=== PATIENT | male | born 1950 | race Caucasian/White ===

== ENCOUNTER 2017-06-08 14:33 | Inpatient (IN) | payer MEDICARE, OTHER ==
[~2017-06-08] VITALS: Ht 182.9 cm; Wt 106.8 kg
[2017-06-28] MEDS ORDERED: VALS1TAB65 PO (09:41)
[2017-06-28] MEDS ORDERED: RANI150T PO (09:41)
[2017-06-28] MEDS ORDERED: ATOR10TA15 PO (09:41)
[2017-06-28] MEDS ORDERED: CELE1CAP8 PO (09:41)
[2017-06-28] MEDS ORDERED: OMEP40CA2 PO (09:41)
[2017-06-28] MEDS ORDERED: ESCI10TA PO (09:41)
[2017-07-09] MEDS ORDERED: POVIDONE IODINE 5% (ANTISEPSIS KIT) 4 APPLICATIONS EACH NARE PRN (06:00)
[2017-07-09] MEDS ORDERED: METOPROLOL TARTRATE 25 MG TAB PO PRN (06:00)
[2017-07-09] MEDS ORDERED: INSULIN HUMAN REGULAR 1,000 UNITS/10 ML VIAL SQ PRN (06:00)
[2017-07-09] MEDS ORDERED: CHLORHEXIDINE GLUCONATE 2 % 1 PACK (2 CLOTHS) TOPICAL PRN (06:00)
[2017-07-09] MEDS ORDERED: SODIUM CHLORID 0.9% 500 ML IV PRN (06:00)
[2017-07-09] MEDS ORDERED: CHLORHEXIDINE GLUCONATE 4% SOLN 120 ML BTL TOPICAL SCH (06:00)
[2017-07-09] MEDS ORDERED: LACTATED RINGER'S 1000 ML IV PRN (06:00)
[2017-07-09] MEDS ORDERED: ceFAZolin 2 GM PREMIX 50 ML IV SCH (06:00)
[2017-07-09] MEDS ORDERED: GENTAMICIN SULFATE 80 MG/2 ML VIAL ONE (06:15)
[2017-07-09] MEDS ORDERED: DEXAMETHASONE SOD PHOS 4 MG/ML VIAL ONE (06:40)
[2017-07-09] MEDS ORDERED: MIDAZOLAM HCL 2 MG/2 ML VIAL ONE (06:40)
[2017-07-09] MEDS ORDERED: FAMOTIDINE 20 MG/2 ML VIAL ONE (06:40)
[2017-07-09] MEDS ORDERED: ACETAMINOPHEN 1000 MG/100 ML VIAL IV ONE (06:40)
[2017-07-09] MEDS ORDERED: BISACODYL 10 MG SUPP RECTAL PRN (06:45)
[2017-07-09] MEDS ORDERED: SODIUM CHLORIDE 0.9% FLUSH 5 ML FLUSH IVF PRN (06:45)
[2017-07-09] MEDS ORDERED: TRANEXAMIC ACID INJ 0 MG in SODIUM CHLORIDE 0.9% INJ 100 ML IV SCH (06:45)
[2017-07-09] MEDS ORDERED: ONDANSETRON HCL 4 MG/2 ML VIAL IVP PRN (06:45)
[2017-07-09] MEDS ORDERED: ACETAMINOPHEN/HYDROcodone 325 MG/7.5 MG TAB PO PRN ×2 (06:45)
[2017-07-09] MEDS ORDERED: MORPHINE SULFATE 8 MG/ML INJ IV PUSH PRN (06:45)
[2017-07-09] MEDS ORDERED: MAGNESIUM HYDROXIDE SUSP 30 ML CUP PO PRN (06:45)
[2017-07-09] MEDS ORDERED: Post-op Orders (for Pharmacy) MISC XX ONE (06:45)
--- NOTE | 2017-07-09 06:51 | HHI.FF ---
Face to Face Verification Diagnosis: (1) Status post total hip replacement, right Physical Therapy Gait training Hip: Total hip, Protocol: Right, Posterior hip precautions, Progress to weight bearing Canvas Knee Splint: When in bed & 2 pillows btw thighs Right LE Weight Bearing: WB as tolerated Right LE Range of Motion: Active ROM Nursing Nursing: Dressing changes Dressing Changes: Daily dressing change, Coverderm/Primapore Additional Instructions Remove steristrips on postop day 14. I have seen patient Ismael Yip on 07/09/17. My clinical findings support the need for the requested home health care services because: Ltd mobility - disease progression Limited ability to care for self High risk of falls I certify that my clinical findings support that this patient is homebound because: Post-op weakness Unsteady gait/balance Unsafe to leave home unassisted Fany Bhakta MD (Charles) Jul 09, 2017 06:51
[2017-07-09] MEDS ORDERED: SODIUM CHLORIDE 0.9% IV SCH ×2 (07:00→10:00)
[2017-07-09] MEDS ORDERED: EXPAREL PERI-ARTICULAR INJECTION (TOTAL VOL. 60 ML) P-ARTICULR SCH ×2 (07:00)
[2017-07-09] MEDS ORDERED: TRANEXAMIC ACID IV SCH ×2 (07:00→10:00)
[2017-07-09] MEDS: SODIUM CHLORIDE 0.9% FLUSH 5 ML FLUSH IVF SCH ×2 (09:00→21:00)
[2017-07-09] MEDS ORDERED: DO NOT ADM ANY ANTICOAGULANT DRUGS PRN (09:56)
[2017-07-09] MEDS: LACTATED RINGER'S 1000 ML INJ 1,000 ML IV SCH ×2 (10:00→19:14)
[2017-07-09] MEDS ORDERED: *morphine SULFATE 8 MG/ML PERIprocedure ONLY ONE (10:35)
--- NOTE | 2017-07-09 11:02 | RADRPT ---
EXAM DATE/TIME: 07/09/2017 10:16 [place] COMPARISON: No previous studies available for comparison. INDICATIONS : Right total hip replacement. MEDICAL HISTORY : Hypertension. Gastroesophageal reflux disease. SURGICAL HISTORY : Right total hip replacement. ENCOUNTER: Initial ACUITY: 1 day PAIN SCORE: 3/10 LOCATION: Right hip FINDINGS: A two view examination of the right hip was performed. Right hip prosthesis. No hardware loosening or fracture. The acetabulum is grossly intact. CONCLUSION: Right hip prosthesis. Saravanan Baker MD on July 09, 2017 at 11:00 Board Certified Radiologist. This report was verified electronically.
--- NOTE | 2017-07-09 11:06 | MP ---
cc: Miguel Ángel RAMIREZ. DATE OF SURGERY: 07/09/2017 PREOPERATIVE DIAGNOSIS Primary osteoarthritis, right hip. POSTOPERATIVE DIAGNOSIS Primary osteoarthritis, right hip. OPERATION PERFORMED Right total hip arthroplasty using Roxie prosthesis. SURGEON Fany Ramirez MD ANESTHESIA Spinal with supplemental local using Exparel INDICATIONS AND FINDINGS This 66-year-old man has had right hip pain for the past 18 months. This is progressively worsened to the point where his ambulation tolerance is one mile. He has pain that radiates to the knee and pain when driving. He has difficulty standing from a seated position and using stairs. He has been treated with anti-inflammatory agents, analgesics, activity modification, exercise, physical therapy and ambulatory aids without recent benefit and with progressive worsening. Physical findings showed limitation of motion of the hip with tenderness on motion. X-rays showed significant arthritis down to exposed subchondral bone seen on the x-rays and MRI. There are some degenerative cysts and subchondral sclerosis. There are osteophytes. The operative findings were consistent with the radiographic findings with loss of articular cartilage to [id number]. The prosthesis used was a Willie prosthesis with the acetabular component being a size 54 tritanium cluster shell with a single screw and a 32 mm inner diameter X3 polyethylene Trident liner. The femoral component was a size 6 x 127 degree neck angle with a Biolox Delta ceramic head size 32 mm outer diameter x +0 neck length. PROCEDURE The patient was brought to the clean-air operating suite and a spinal anesthetic was administered. He received prophylactic antibiotics in the form of Ancef and also received tranexamic acid, both according to standard protocols. The patient was then positioned in a lateral position on a Biomet lateral positioner with the right hip up. The hip was then prepped with alcohol, Hibiclens and ChloraPrep and draped in the usual manner with the hip draped free. An appropriate timeout procedure was carried out. Local anesthesia was administered in the incision site prior to making the incision. The incision was approximately 15 cm in length going from the mid trochanteric area proximally and posteriorly. The incision was deepened through the subcutaneous tissues to the upper portion of the greater trochanter and the fascia isaac and gluteus fascia. The gluteus fascia was incised and then the gluteus esha was spread down to the posterior fat layer. A Charnley retractor was inserted. A retractor was then placed above the piriformis and the obturator muscle tendons. These were then transected and released off the posterior superior aspect of the greater trochanter. The capsulotomy was then carried out going longitudinally along the femoral neck up proximally. This was carried down more distally as well, as well as dissecting anteriorly and posteriorly. The hip was dislocated. The femoral neck was transected with the oscillating saw. The femur was then prepared using a box osteotome to initiate reaming followed by a canal finding awl and curet, and subsequently broaching starting at size 0 and going up to size 7. At size 7 no calcar planing was necessary. The hip was then repositioned. Attention was to directed to the acetabulum. The soft tissues were debrided from the acetabulum with electrocautery. Reaming was started at 45 mm and went in 1 mm increments to 51 mm. A trial reduction was carried out with a 52 mm but this was loose. Additional reaming was carried up to 53 mm. A trial prosthesis was inserted and appeared to be appropriate. The actual prosthesis was then placed onto the insertion device and impacted into place according to the anatomical landmarks. The position appeared to be excellent. The shell was then stabilized with a single dome screw, predrilled and sounded. When this was seated the 0 degree acetabular liner with a 32 mm inner diameter was impacted into place and seated appropriately. Trial reduction was carried out with a -4 mm neck length trial but this was tight. For this reason the femoral trial broach was removed and broaching carried out to 6 instead. Additional calcar planing was required to bring this to appropriate length. At this point the trial reduction was carried out with the neutral neck length and this was appropriate. The broach was removed. The medullary canal was cleaned with pulse lavage. Prior to placement of the femoral component the acetabulum and femur were injected with Exparel. The prosthesis was then seated into appropriate position. A trial reduction was carried out again with a neutral neck and was found to be excellent. The Biolox Delta head was impacted onto the cleaned and dried trunnion. The hip was reduced. It was taken through a range of motion which showed excellent motion, excellent stability and no pistoning. The leg lengths were appropriate. After further injection with local anesthetic the capsule was closed with a #1 Vicryl continuous lock stitch from proximal to distal. Further closure through drill holes on the posterior aspect of the greater trochanter was carried using #1 Vicryl repairing the capsule and external rotators using a Krackow technique. When these were close the remainder of the Exparel was injected throughout the hip. The sciatic nerve was inspected and found to be unmolested. The gluteus was then repaired with #1 Vicryl interrupted [id number] sutures. The subcutaneous tissues were closed with 2-0 Vicryl interrupted simple sutures with buried knots. The skin was closed with continuous subcuticular closure of 4-0 Monocryl. The wound was dressed with Steri-Strips followed by dry dressing and Medipore compression dressing. He was placed into a knee immobilizer and transferred to the recovery room in satisfactory condition having tolerated the procedure well. Counts were correct. Specimens none. Estimated blood loss 250 mL. MD GARRISON Randall/FELIX /9:35 AM /10:49 AM
[2017-07-09] MEDS: KETOROLAC TROMETHAMINE 30 MG/ML (IVP) VIAL IVP SCH ×3 (11:45→22:20)
[2017-07-09] MEDS ORDERED: PROPOFOL 200 MG/20 ML AMP IV ONE (12:00)
[2017-07-09] MEDS ORDERED: PHENYLEPH/NS 1000 MCG/10 ML SYR IV ONE (12:00)
[2017-07-09] MEDS ORDERED: ONDANSETRON HCL 4 MG/2 ML VIAL IV PUSH ONE (12:00)
[2017-07-09] MEDS ORDERED: LACTATED RINGER'S 1000 ML INJ 1,000 ML IV ONE (12:00)
[2017-07-09] MEDS ORDERED: ePHEDrine/NS 25 MG/5 ML SYR IV ONE (12:00)
--- NOTE | 2017-07-09 13:27 | PD.CONS ---
HPI Service [facility] Hospitalists Consult Requested By Orthopedic service Reason for Consult Medical management Primary Care Physician Madi Messina Diagnoses: History of Present Illness Written by Hodan Rubin PA-C acting as scribe for Dr. Tesfaye on 07/09/17 at 13:21. This is a 66yo male with osteoarthritis who failed attempts at conservative therapy and underwent an elective right total hip replacement performed by Dr. Bhakta was consulted hospitalist services for medical management of patient' s chronic medical conditions including hypertension, dyslipidemia, GERD and depression. Patient seen and examined postoperatively in his room. Patient states he's doing well. Pain is well controlled. He denies any fever or chills. Denies any nausea, vomiting or abdominal pain. Denies any chest pain or shortness of breath. All other systems reviewed and are negative. Review of Systems Except as stated in HPI: all other systems reviewed are Neg Past Family Social History Allergies: Coded Allergies: No Known Allergies (Unverified , 06/28/17) Past Medical History HTN HLD GERD Depression Past Surgical History Hernia Cholecystectomy Lasik surgery Thumb surgery Fundoplication Meniscectomy Reported Medications Atorvastatin Valsartan Celebrex Lexapro Ranitidine Omeprazole Active Ordered Medications Current Medications Medications (Trade) Dose Ordered Sig/Basilio Route Start Time Stop Time Status Last Admin (Lopressor) 25 mg CARDIAC NURSE SPECIALIST PRN PO 07/09/17 06:00 07/12/17 05:59 (Betadine 5% Antisepsis Kit) 1 applic CARDIAC NURSE SPECIALIST PRN EACH NARE 07/09/17 06:00 07/12/17 05:59 07/09/17 06:07 (Chlorhexidine 2% Cloth) 3 pack CARDIAC NURSE SPECIALIST PRN TOPICAL 07/09/17 06:00 07/12/17 05:59 07/09/17 05:45 (NovoLIN R INJ) See Protocol Table ... CARDIAC NURSE SPECIALIST PRN SQ 07/09/17 06:00 07/12/17 05:59 (Hibiclens 4% Top Soln) 1 applic ONCE TOPICAL 07/09/17 06:00 07/12/17 05:59 07/09/17 06:18 Cefazolin Sodium/ Dextrose 50 ml @ 100 mls/hr CARDIAC NURSE SPECIALIST IV 07/09/17 06:00 07/12/17 05:59 07/09/17 07:21 Lactated Ringer's 1,000 ml @ 80 mls/hr [id number] IV 07/09/17 06:44 07/09/17 10:00 (NS Flush) 2 ml UNSCH PRN IVF 07/09/17 06:45 (NS Flush) 2 ml BID IVF 07/09/17 09:00 Cefazolin Sodium 1000 mg/Sodium Chloride 100 ml @ 200 mls/hr Q6H IV 07/09/17 14:00 07/10/17 02:29 (Morphine Inj) 5 mg Q3H PRN IV PUSH 07/09/17 06:45 (Mason 7.5-325 Mg) 1 tab Q4H PRN PO 07/09/17 06:45 (Mason 7.5-325 Mg) 2 tab Q4H PRN PO 07/09/17 06:45 (Toradol Inj) 15 mg Q6H IVP 07/09/17 11:00 07/11/17 05:01 07/09/17 11:45 (Zofran Inj) 4 mg Q6H PRN IVP 07/09/17 06:45 (Colace) 100 mg BID PO 07/10/17 21:00 (Ambien) 5 mg HS PRN PO 07/09/17 21:00 (Dulcolax Supp) 10 mg DAILY PRN RECTAL 07/09/17 06:45 (Milk Of Magnesia Liq) 30 ml DAILY PRN PO 07/09/17 06:45 (Ecotrin Ec) 81 mg BID PO 07/10/17 09:00 (Lipitor) 10 mg HS PO 07/09/17 21:00 (CeleBREX) 200 mg DAILY PO 07/12/17 09:00 (Lexapro) 10 mg DAILY PO 07/10/17 09:00 (Diovan) 160 mg DAILY PO 07/10/17 09:00 (Protonix) 40 mg DAILY PO 07/10/17 09:00 (Pepcid) 20 mg BID PO 07/09/17 21:00 Miscellaneous Information ALL NURSING DEPARTME... UNSCH PRN .XX 07/09/17 09:56 07/10/17 09:55 Family History Heart disease, Mother, Uncle and Grandfather Father, , old age Social History Patient denies any previous tobacco use history Patient reports alcohol consumption of 3-4 EtOH beverages per week Patient denies any illicit drug use Physical Exam Vital Signs Vital Signs Date Time Temp Pulse Resp B/P (MAP) Pulse Ox O2 Delivery O2 Flow Rate FiO2 07/09/17 11:30 91 16 156/82 (106) 98 Nasal Cannula 2 07/09/17 11:15 91 16 144/81 (102) 97 Nasal Cannula 2 07/09/17 11:00 89 16 146/75 (98) 97 Nasal Cannula 2 07/09/17 10:45 86 16 148/85 (106) 98 Nasal Cannula 2 07/09/17 10:30 84 16 152/78 (102) 96 Nasal Cannula 2 07/09/17 10:15 83 16 149/76 (100) 97 Simple Mask 8 07/09/17 10:00 96.8 83 16 140/84 (102) 98 Simple Mask 8 07/09/17 06:12 97.8 67 20 157/84 (108) 95 Physical Exam GENERAL: This is a well-nourished, well-developed patient, in no apparent distress. Lying in hospital bed. Awake and alert. SKIN: No rashes, ecchymoses or lesions. Cool and dry. HEAD: Atraumatic. Normocephalic. No temporal or scalp tenderness. EYES: Pupils equal round and reactive. Extraocular motions intact. No scleral icterus. No injection or drainage. ENT: Nose without bleeding or purulent drainage. Throat without erythema, tonsillar hypertrophy or exudate. Uvula midline. Airway patent. NECK: Trachea midline. No lymphadenopathy. Supple, nontender, no meningeal signs. CARDIOVASCULAR: Regular rate and rhythm without murmurs, gallops, or rubs. RESPIRATORY: Clear to auscultation. Breath sounds equal bilaterally. No wheezes , rales, or rhonchi. GASTROINTESTINAL: Abdomen soft, non-tender, nondistended. No hepato-splenomegaly , or palpable masses. No guarding. MUSCULOSKELETAL: S/p right total hip replacement. Postoperative dressing C/D/I. Neurovascularly intact distally. NEUROLOGICAL: Awake and alert. Able to move all extremities. Normal speech. Assessment and Plan Assessment and Plan 66yo male with osteoarthritis who failed attempts at conservative therapy and underwent an elective right total hip replacement performed by Dr. Bhakta was consulted hospitalist services for medical management of patient's chronic medical conditions including hypertension, dyslipidemia, GERD and depression. Osteoarthritis failed attempts at conservative therapy who underwent an elective right total hip replacement Management per orthopedic team Pain management with Mason and IV morphine for breakthrough pain. Toradol 15 mg every 6 8 doses. Began participation with PT/OT Postop wound care Will monitor postoperative H&H Hypertension, controlled Continue patient's home dose of valsartan Monitor BP Dyslipidemia Continue patient's home dose of atorvastatin Depression Continue patient's home dose of Lexapro GERD Protonix 40 mg daily DVT prophylaxis per Ortho This note was transcribed by scribe [Hodan Rubin]. I, Dr. Maurilio Tesfaye personally performed the history, physical exam, and medical decision making; and confirmed the accuracy of the information in the transcribed note. Authenticated by Dr. Maurilio Tesfaye on 07/09/17 at 13:30. Hodan Rubin Jul 09, 2017 13:27 Maurilio Tesfaye MD Jul 09, 2017 13:31
[2017-07-09 15:30] VITALS: BP 157/77; PULSE 103; RESP 17; TEMP 95.6; O2SAT 95
[2017-07-09 19:00] VITALS: BP 129/70; PULSE 106; RESP 16; TEMP 96; O2SAT 97
[2017-07-09] MEDS: FAMOTIDINE 20 MG TAB PO SCH (21:00)
[2017-07-09] MEDS ORDERED: ZOLPIDEM TARTRATE 5 MG TAB PO PRN (21:00)
[2017-07-09] MEDS ORDERED: ATORVASTATIN 10 MG TAB PO SCH (21:00)
[2017-07-10] VITALS: BP 126/63; PULSE 74; RESP 17; TEMP 97.9; O2SAT 93
[2017-07-10] MEDS: KETOROLAC TROMETHAMINE 30 MG/ML (IVP) VIAL IVP SCH ×2 (06:25→10:53)
[2017-07-10] MEDS: LACTATED RINGER'S 1000 ML INJ 1,000 ML IV SCH (07:44)
[2017-07-10 07:48] LABS: HEMATOCRIT 33.9 % (39.0-51.0); MEAN CELL VOLUME 91.8 FL (80.0-100.0); MEAN CORPUSCULAR HEMOGLOBIN 31.1 PG (27.0-34.0); MEAN CORPUSCULAR HGB CONC 33.9 % (32.0-36.0); PLATELET COUNT 132 TH/MM3 (150-450); RED BLOOD COUNT 3.69 MIL/MM3 (4.50-5.90); REVIEW FLAG FINAL; WHITE BLOOD COUNT 7.5 TH/MM3 (4.0-11.0)
--- NOTE | 2017-07-10 07:48 | PD.ORT.PN ---
Subjective Post Op Day #: 1 Subjective Remarks He is doing well. There is no pain. He walked 3 time around the floor. Distance Walked 200 feet. Objective Vitals Vital Signs Date Time Temp Pulse Resp B/P (MAP) Pulse Ox O2 Delivery O2 Flow Rate FiO2 07/10/17 00:00 97.9 74 17 126/63 (84) 93 07/09/17 19:22 Room Air 07/09/17 19:00 96.0 106 16 129/70 (89) 97 07/09/17 15:30 95.6 103 17 157/77 (103) 95 07/09/17 12:42 99 16 146/76 (99) 96 Nasal Cannula 2 07/09/17 12:30 98 16 146/73 (97) 97 Nasal Cannula 2 07/09/17 11:30 91 16 156/82 (106) 98 Nasal Cannula 2 07/09/17 11:15 91 16 144/81 (102) 97 Nasal Cannula 2 07/09/17 11:00 89 16 146/75 (98) 97 Nasal Cannula 2 07/09/17 10:45 86 16 148/85 (106) 98 Nasal Cannula 2 07/09/17 10:30 84 16 152/78 (102) 96 Nasal Cannula 2 07/09/17 10:15 83 16 149/76 (100) 97 Simple Mask 8 07/09/17 10:00 96.8 83 16 140/84 (102) 98 Simple Mask 8 I/O 07/09/17 07/09/17 07/09/17 07/10/17 07/10/17 07/10/17 07:00 15:00 23:00 07:00 15:00 23:00 Intake Total 1820 ml 530 ml 680 ml Output Total 3250 ml Balance -1430 ml 530 ml 680 ml Intake Oral 480 ml 480 ml IV Total 1760 ml 50 ml 200 ml Other 60 ml Output Urine Total 0 ml Estimated Blood Loss 250 ml Other 3000 ml # Voids 3 3 # Bowel Movements 0 0 Imaging Hip x-ray looks good. Objective Remarks Resting comfortably, supine in bed. The dressing is dry and intact. The neurovascular status is intact. Assessment & Plan Ortho Post Op Day #: 1 Problem List: (1) Status post total hip replacement, right ICD Codes: Z96.641 - Presence of right artificial hip joint Status: Acute Plan: Continue postop care and PT. Assessment and Plan Condition: Good. Orthopaedically stable. DVT prophylaxis: TEDs, ASA, sequentials. Discharge plans: Home with [facility]. Has appointment. Rx: [place] 7.5/325 Fany Bhakta MD (Charles) Jul 10, 2017 07:48
[2017-07-10 08:00] VITALS: BP 105/64; PULSE 75; RESP 16; TEMP 95.7; O2SAT 96
[2017-07-10 08:14] LABS: BICARBONATE 27.3 MEQ/L (21.0-32.0); POTASSIUM 4.3 MEQ/L (3.5-5.1)
[2017-07-10] MEDS ORDERED: ASPI-99 PO (08:23)
[2017-07-10] MEDS ORDERED: HYDR-3580 PO (08:23)
[2017-07-10] MEDS ORDERED: ASPIRIN EC 81 MG TABEC PO SCH (09:00)
[2017-07-10] MEDS ORDERED: VALSARTAN 160 MG TAB PO SCH (09:00)
[2017-07-10] MEDS ORDERED: ESCITALOPRAM OXALATE 10 MG TAB PO SCH (09:00)
[2017-07-10] MEDS ORDERED: PANTOPRAZOLE SOD 40 MG DELAYED RELEASE TAB PO SCH (09:00)
[2017-07-10] MEDS: SODIUM CHLORIDE 0.9% FLUSH 5 ML FLUSH IVF SCH (09:27)
[2017-07-10] MEDS: FAMOTIDINE 20 MG TAB PO SCH (09:27)
--- NOTE | 2017-07-10 10:10 | HHI.PR ---
Subjective Remarks Patient is doing well postop. No complaints. Pain control. Hemoglobin 11.5. Medically clear for discharge once orthopedic service clears patient. Objective Vital Signs Date Time Temp Pulse Resp B/P (MAP) Pulse Ox O2 Delivery O2 Flow Rate FiO2 07/10/17 08:00 95.7 75 16 105/64 (78) 96 07/10/17 00:00 97.9 74 17 126/63 (84) 93 07/09/17 19:22 Room Air 07/09/17 19:00 96.0 106 16 129/70 (89) 97 07/09/17 15:30 95.6 103 17 157/77 (103) 95 07/09/17 12:42 99 16 146/76 (99) 96 Nasal Cannula 2 07/09/17 12:30 98 16 146/73 (97) 97 Nasal Cannula 2 07/09/17 11:30 91 16 156/82 (106) 98 Nasal Cannula 2 07/09/17 11:15 91 16 144/81 (102) 97 Nasal Cannula 2 07/09/17 11:00 89 16 146/75 (98) 97 Nasal Cannula 2 07/09/17 10:45 86 16 148/85 (106) 98 Nasal Cannula 2 07/09/17 10:30 84 16 152/78 (102) 96 Nasal Cannula 2 07/09/17 10:15 83 16 149/76 (100) 97 Simple Mask 8 I/O 07/09/17 07/09/17 07/09/17 07/10/17 07/10/17 07/10/17 06:59 14:59 22:59 06:59 14:59 22:59 Intake Total 1820 ml 530 ml 680 ml Output Total 3250 ml Balance -1430 ml 530 ml 680 ml Intake Oral 480 ml 480 ml IV Total 1760 ml 50 ml 200 ml Other 60 ml Output Urine Total 0 ml Estimated Blood Loss 250 ml Other 3000 ml # Voids 3 3 # Bowel Movements 0 0 Result Diagram: 07/10/1763607/10/17636 Objective Remarks GENERAL: NAD, A&Ox3 HEAD: Normocephalic. NECK: Supple, trachea midline. No lymphadenopathy. EYES: No scleral icterus. No injection or drainage. CARDIOVASCULAR: Regular rate and rhythm without murmurs, gallops, or rubs. RESPIRATORY: Breath sounds equal bilaterally. No accessory muscle use. GASTROINTESTINAL: Abdomen soft, non-tender, nondistended. MUSCULOSKELETAL: No cyanosis, or edema. SKIN: Warm and dry. NEURO: No focal neurological deficitis. A/P Problem List: (1) Status post total hip replacement, right ICD Code: Z96.641 - Presence of right artificial hip joint Status: Acute (2) Primary osteoarthritis of right hip ICD Code: M16.11 - Unilateral primary osteoarthritis, right hip Assessment and Plan Assessment and Plan 66yo male status post right total hip replacement. Medically stable for discharge when orthopedic surgeons clear patient for discharge right total hip replacement No significant postop anemia Doing well postop Continue as needed pain control Continue PT Continue wound care Follow up with orthopedic surgeons as an outpatient Medically cleared for discharge Hypertension controlled Continue patient's home dose of valsartan Dyslipidemia Continue atorvastatin Depression Continue Lexapro GERD Protonix 40 mg daily DVT Prophylaxis per Ortho Maurilio Tesfaye MD Jul 10, 2017 10:10
[2017-07-10 11:01] VITALS: O2SAT 95
[2017-07-10 12:15] VITALS: BP 116/71; PULSE 67; RESP 16; TEMP 98; O2SAT 98
[2017-07-10] MEDS ORDERED: DOCUSATE SODIUM 100 MG CAP PO SCH (21:00)
[2017-07-12] MEDS ORDERED: CELECOXIB 200 MG CAP PO SCH (09:00)
== END 2017-07-10 15:34 | disposition home health service (06) | DRG 470 ==
LOC: HSDI 07-09 05:35 → EDUNIT# 07-09 07:00 → N06B 07-09 12:55
PROVIDERS: ADMIT Orthopaedic Surgery; ATTEND Orthopaedic Surgery
PROC: 0SR90JA Replacement of Right Hip Joint with Synthetic Substitute, Uncemented, Open Approach (ICD-10-PCS; principal; 2017-07-09 06:41)
DX: M16.11 Unilateral primary osteoarthritis, right hip (principal); I10 Essential (primary) hypertension; E78.5 Hyperlipidemia, unspecified; K21.9 Gastro-esophageal reflux disease without esophagitis; F32.9 Major depressive disorder, single episode, unspecified
CPT/HCPCS: 73502; 80048; 85027; 86850; 86900; 86901; 94150; C1776; C9290; J0131; J0690; J1100; J1580; J1885; J2250; J2270; J2370; J2405; J3010; J7120; L1830

== ENCOUNTER → 2017-06-28 | Outpatient (CLI) | payer MEDICARE, OTHER ==
[~2017-06-28] MED LIST: ASPI-99 PO; ATOR10TA15 PO; CELE1CAP8 PO; ESCI10TA PO; HYDR-3580 PO; OMEP40CA2 PO; RANI150T PO; VALS1TAB65 PO
[2017-06-28 09:51] LABS: BLOOD, URINE NEG (NEG); COMMENT (UR) CULT NOT INDICATED; CULTURE IF INDICATED CULT NOT INDICATED; GLUCOSE,URINE NEG (NEG); KETONE, URINE NEG (NEG); MUCUS URINE FEW /lpf (OCC); NITRITE,URINE NEG (NEG); PH, URINE 5.5 (5.0-8.5); URINE COLOR YELLOW (YELLW/STRAW)
[2017-06-28 09:58] LABS: HEMATOCRIT 42.8 % (39.0-51.0); MEAN CELL VOLUME 90.8 FL (80.0-100.0); MEAN CORPUSCULAR HGB CONC 34.1 % (32.0-36.0); PLATELET COUNT 166 TH/MM3 (150-450); RED BLOOD COUNT 4.72 MIL/MM3 (4.50-5.90); RED CELL DISTRIBUTION WIDTH 14.6 % (11.6-17.2); REVIEW FLAG FINAL; WHITE BLOOD COUNT 3.8 TH/MM3 (4.0-11.0)
[2017-06-28 10:01] LABS: APTT (PATIENT) 27.7 SEC (24.3-30.1)
[2017-06-28 10:20] LABS: BICARBONATE 27.3 MEQ/L (21.0-32.0); POTASSIUM 4.2 MEQ/L (3.5-5.1)
--- NOTE | 2017-06-29 14:13 | EKG ---
Date Performed: 06/28/2017 Time Performed: 09:36:28 PTAGE: 66 years EKG: Sinus rhythm NORMAL ECG NO PREVIOUS TRACING DOCTOR: Alexis Rehman Interpretating Date/Time 06/29/2017 14:12:52
== END ==
LOC: CPRE 09:12
PROVIDERS: ATTEND Orthopaedic Surgery
DX: Z01.810 Encounter for preprocedural cardiovascular examination (principal); Z01.812 Encounter for preprocedural laboratory examination; M16.11 Unilateral primary osteoarthritis, right hip; I10 Essential (primary) hypertension; M79.609 Pain in unspecified limb
CPT/HCPCS: 36415; 80048; 81001; 85027; 85610; 85730; 93005